=== PATIENT | female | born 1995 | race Caucasian/White ===

== ENCOUNTER 2016-06-30 22:35 | Emergency (ER) | payer BC ==
[~2016-06-30] VITALS: Ht 152.4 cm; Wt 45.4 kg
[2016-06-30 22:40] VITALS: BP 111/74; PULSE 71; RESP 14; TEMP 98.7; O2SAT 100
--- NOTE | 2016-06-30 22:40 | NUR ---
Patient to ER bed 6 to gown for evaluation. Side rails up. Report given to SWETHA Chery.
--- NOTE | 2016-06-30 22:45 | NUR ---
Pt states that earlier she was at the gym and the bar fell on her face. Pt has 2 small laceration in the L orbital area with mild swelling and bruising. Will continue to monitor. No other injuries or complaints mentioned/noted. No distress noted.
--- NOTE | 2016-06-30 23:00 | NUR ---
ER Dr. Ely at bedside examining patient.
[2016-07-01 00:01] VITALS: BP 111/74; PULSE 71; RESP 14; TEMP 98.7; O2SAT 100
--- NOTE | 2016-07-01 00:01 | NUR ---
Patient given written and verbal discharge instructions and verbalizes understanding. ER MD DR. SMITH discussed with patient the results and treatment provided. Patient in stable condition. ID arm band removed. Rx of MOTRIN 600 given. Patient educated on pain management and to follow up with PMD. Pain Scale 2/10. Opportunity for questions provided and answered.
[2016-07-01] MEDS ORDERED: IBUPROFEN 600 MG TABLET ONE (00:04)
== END 2016-07-01 00:01 | disposition home or self-care (01) ==
LOC: SED 22:35
DX: S01.112A Laceration without foreign body of left eyelid and periocular area, initial encounter (principal); Z88.0 Allergy status to penicillin; W20.8XXA Other cause of strike by thrown, projected or falling object, initial encounter; Y93.89 Activity, other specified; Y92.89 Other specified places as the place of occurrence of the external cause; Y99.8 Other external cause status
CPT/HCPCS: 99283